=== PATIENT | female | born 1940 | race Caucasian/White ===

== ENCOUNTER → 2016-08-19 | Outpatient (CLI) | payer MEDICARE, OTHER ==
[~2016-08-19] MED LIST: ASPI-664 PO; BEN25 PO; BIOF1TAB PO; DOCU-144 PO; DULO30CA47 PO; ESOM40CA PO; FAMO-96 PO; FEXO180T61 PO; GEMF600T PO; HYDR-3671 PO; LOSA100T7 PO; MELO7.5O PO; METF500T4 PO; OXYC-281 PO; RALO60TA12 PO; TRAZ50TA18 PO
--- NOTE | 2016-08-19 14:46 | RADRPT ---
PROCEDURE: US DVT. CLINICAL INDICATION: Left lower extremity pain and swelling. TECHNIQUE: Multiple longitudinal and transverse images of the left lower extremity veins were obta ined with siegel scale and color Doppler imaging. 2D grayscale measurements with compression, color D oppler flow, and augmentation was performed. The calf veins were interrogated as well. COMPARISON: No prior studies are available for comparison. FINDINGS: The left common femoral, superficial femoral and popliteal veins are normally compressible throughou t. Color flow demonstrates normal filling of the vessel. Normal waveforms are visualized and there is normal response to augmentation. IMPRESSION: 1. No evidence of a deep vein thrombosis involving the left lower extremity. RPTAT: [facility] Physician Ericka Date Time Electronically viewed and signed by Physician Ericka on 08/19/2016 14:46 /
== END | disposition home or self-care (01) ==
LOC: VAS 14:00
PROVIDERS: ATTEND Internal Medicine
DX: R22.42 Localized swelling, mass and lump, left lower limb (principal); M79.662 Pain in left lower leg
CPT/HCPCS: 93971